=== PATIENT | male | born 2000 | race Two or more races ===

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

== ENCOUNTER → 2020-07-26 | Outpatient (CLI) | payer OTHER ==
[~2020-07-26] MED LIST changes: +NONE PER PT
== END | disposition home or self-care (01) ==
LOC: STAR 14:33
PROVIDERS: ATTEND Orthopaedic Surgery
DX: Z20.822 Contact with and (suspected) exposure to COVID-19 (principal); S43.432A Superior glenoid labrum lesion of left shoulder, initial encounter; M25.312 Other instability, left shoulder; X58.XXXA Exposure to other specified factors, initial encounter; Y93.89 Activity, other specified; Y92.89 Other specified places as the place of occurrence of the external cause; Y99.8 Other external cause status
CPT/HCPCS: 87635

== ENCOUNTER 2020-08-01 05:22 | Day surgery (SDC) | payer BC, OTHER ==
[~2020-08-01] VITALS: Ht 167.6 cm; Wt 86.8 kg
[2020-08-01 06:06] VITALS: BP 141/86
[2020-08-01] MEDS ORDERED: LACTATED RINGERS 1,000 ML IV SCH (06:30)
[2020-08-01] MEDS ORDERED: CHLORHEXIDINE 15 ML UDC MM ONE (06:30)
[2020-08-01] MEDS ORDERED: CLINDAMYCIN 150 MG/ML, 6ML ONE (06:35)
[2020-08-01] MEDS ORDERED: EPINEPHRINE TOPICAL SOLN 1 MG/ML, 30ML ONE (06:35)
[2020-08-01] MEDS ORDERED: BUPIVACAINE/PF 0.25% ONE (06:35)
[2020-08-01] MEDS ORDERED: FENTANYL PF 250 MCG/5ML ONE (06:53)
[2020-08-01] MEDS ORDERED: MIDAZOLAM 1 MG/ML, 2ML ONE (06:53)
[2020-08-01] MEDS ORDERED: ROCURONIUM 10MG/ML,5ML ONE (07:20)
[2020-08-01] MEDS ORDERED: SUCCINYLCHOLINE 20 MG/ML, 10ML ONE (07:20)
[2020-08-01] MEDS ORDERED: CEFAZOLIN 1,000 MG ONE (07:20)
[2020-08-01] MEDS ORDERED: DEXAMETHASONE 4 MG/ML, 1ML ONE (07:20)
[2020-08-01] MEDS ORDERED: PROPOFOL 10 MG/ML, 20ML ONE (07:20)
[2020-08-01] MEDS ORDERED: ONDANSETRON 2MG/ML, 2ML ONE (07:20)
[2020-08-01] MEDS ORDERED: SUGAMMADEX 200 MG/2 ML IVPush ONE (07:20)
[2020-08-01] MEDS ORDERED: METOCLOPRAMIDE 5 MG/ML, 2ML IV PRN (08:00)
[2020-08-01] MEDS ORDERED: KETOROLAC 30 MG/1 ML IV PRN (08:00)
[2020-08-01] MEDS ORDERED: HYDROmorphone 1 MG/ML, 1ML INJ IV PRN (08:00)
[2020-08-01] MEDS ORDERED: MEPERIDINE/PF 25MG/0.5ML IVPush PRN (08:00)
[2020-08-01] MEDS ORDERED: OXYcodone 5 MG/5 ML ORAL.SOL UDC PO PRN (08:00)
[2020-08-01] MEDS ORDERED: hydrALAzine 20 MG/ML, 1ML IV PRN (08:00)
[2020-08-01] MEDS ORDERED: ONDANSETRON 2MG/ML, 2ML IVPush PRN (08:00)
[2020-08-01] MEDS ORDERED: ALBUTEROL SULFATE 2.5 MG/3 ML NPPB PRN (08:00)
[2020-08-01] MEDS ORDERED: DIAZEPAM 5 MG/ML, 2ML IV PRN ×2 (08:00)
[2020-08-01] MEDS ORDERED: PROMETHAZINE 25 MG/ML, 1ML IV PRN (08:00)
[2020-08-01] MEDS ORDERED: FENTANYL PF 100 MCG/2ML IV PRN (08:00)
[2020-08-01] MEDS ORDERED: LABETALOL 5MG/ML, 20ML IV PRN (08:00)
[2020-08-01] MEDS ORDERED: HYDR-1067 PO (10:23)
[2020-08-01] MEDS ORDERED: ONDA4TAB7 PO (10:25)
[2020-08-01] MEDS ORDERED: NAPR-685 PO (10:25)
== END 2020-08-01 11:15 | disposition home or self-care (01) ==
LOC: OUT 05:22
PROVIDERS: ATTEND Orthopaedic Surgery
DX: S43.432A Superior glenoid labrum lesion of left shoulder, initial encounter (principal); M25.312 Other instability, left shoulder; G89.18 Other acute postprocedural pain; X58.XXXA Exposure to other specified factors, initial encounter; Y93.89 Activity, other specified; Y92.89 Other specified places as the place of occurrence of the external cause; Y99.8 Other external cause status
CPT/HCPCS: 29806; 64415; C1713; J0330; J0690; J1100; J2250; J2405; J2704; J3010; J7120